=== PATIENT | female | born 1995 | race African-American/Black ===

== ENCOUNTER 2017-11-19 09:28 | Observation (INO) | payer MEDICAID ==
[~2017-11-19] VITALS: Ht 162.6 cm; Wt 72.3 kg
[~2017-11-19 09:28] MED LIST: FERR1TAB25; FLORIDE; PREN-99
[2017-11-19 10:00] VITALS: BP 110/65
[2017-11-19] MEDS ORDERED: ACETAMINOPHEN 500MG TABLET PO ONE (11:00)
[2017-11-19] MEDS ORDERED: ONDANSETRON HCL 4MG/2ML VIAL IV ONE (11:00)
[2017-11-19] MEDS ORDERED: [UNRECOGNIZED DRUG - REMARK] IV ONE ×2 (12:00)
[2017-11-19 12:01] LABS: CLARITY URINE CLEAR (CLEAR); COLOR URINE YELLOW (YELLOW); KETONES URINE NEGATIVE (NEGATIVE); LEUKOCYTE ESTERASE URINE 3+ (NEGATIVE); NITRITE URINE NEGATIVE (NEGATIVE); OCCULT BLOOD URINE NEGATIVE (NEGATIVE); PROTEIN URINE NEGATIVE (NEGATIVE); SPECIFIC GRAVITY URINE 1.014 (1.005-1.030); UROBILINOGEN URINE 0.2 E.U./dL (0.2-1.0)
[2017-11-19] MEDS ORDERED: CEFAZOLIN 2,000 MG in DEXT 5% WATER 100 ML IV ONE (13:00)
== END 2017-11-19 14:50 | disposition home or self-care (01) ==
LOC: L&D 09:47 → ER 09:47 → EDSTATUS 10:36
PROVIDERS: ADMIT Specialist; ATTEND Specialist
DX: O26.892 Other specified pregnancy related conditions, second trimester (principal); R10.30 Lower abdominal pain, unspecified; R51 Headache; M54.9 Dorsalgia, unspecified; R11.0 Nausea; Z3A.27 27 weeks gestation of pregnancy
CPT/HCPCS: 76815; 76818; 81003; 96365; 96366; 96368; 96375; 99281; G0378; J0690; J2405; J3490; J7030; 96360; 96361; J7060

== ENCOUNTER 2018-05-02 10:00 | Emergency (ER) | payer MEDICAID ==
[~2018-05-02] VITALS: Ht 167.6 cm; Wt 65.0 kg
[~2018-05-02 10:00] MED LIST changes: -FERR1TAB25; -FLORIDE
[2018-05-02] MEDS ORDERED: MORPHINE SULFATE 4 MG/ML CPJ (NOT FOR IM USE) IV STA (10:36)
[2018-05-02 10:56] LABS: BASOPHILS % 0.8 % (0.0-2.0); EOSINOPHILS % 2.3 % (0.0-5.0); HEMATOCRIT. 35.7 % (36.0-48.0); HEMOGLOBIN. 11.8 g/dL (12.0-16.0); LYMPHOCYTES % 17.9 % (20.0-50.0); MEAN CORPUSCULAR HEMOGLOBIN 25.1 pg (28.0-32.0); MEAN CORPUSCULAR VOLUME 75.8 fL (81.0-99.0); MEAN PLATELET VOLUME 7.7 fl (7.4-10.4); MONOCYTES % 10.4 % (2.0-8.0); NEUTROPHILS % 68.6 % (40.0-76.0); PLATELET 410 x1000/uL (130-400); RED BLOOD CELL COUNT 4.71 mill/uL (4.2-5.4); RED CELL DISTRIBUTION WIDTH 14.8 % (11.6-14.6)
[2018-05-02 11:02] LABS: CHLORIDE 99 mEq/L (98-107)
[2018-05-02] MEDS ORDERED: IOHEXOL-350 100 ML BOTTLE ONE (12:19)
[2018-05-02] MEDS ORDERED: KETOROLAC 15MG/ML VIAL IV ONE (12:45)
[2018-05-02 15:32] VITALS: BP 132/86
== END 2018-05-02 15:33 | disposition home or self-care (01) ==
LOC: ER 10:13
DX: R06.00 Dyspnea, unspecified (principal); R07.9 Chest pain, unspecified; Z79.899 Other long term (current) drug therapy
CPT/HCPCS: 36415; 71045; 71275; 76705; 80053; 81025; 85025; 85379; 93005; 96374; 96375; 99285; J1885; J2270; J7030; Q9967; Z7610

== ENCOUNTER 2022-01-11 01:20 | Emergency (ER) | payer MEDICAID ==
[~2022-01-11] VITALS: Ht 172.7 cm; Wt 73.0 kg
[2022-01-11] MEDS ORDERED: AZITHROMYCIN 500 MG TABLET PO ONE (02:00)
[2022-01-11] MEDS ORDERED: METRONIDAZOLE 500MG TABLET PO ONE (02:00)
[2022-01-11] MEDS ORDERED: KETOROLAC 60MG/2ML VIAL IM ONE (02:00)
[2022-01-11] MEDS ORDERED: CEFTRIAXONE SODIUM 500 MG/VIAL IM ONE (02:00)
[2022-01-11 02:12] LABS: BASOPHILS % 0.9 % (0.0-2.0); EOSINOPHILS % 1.7 % (0.0-5.0); HEMOGLOBIN. 14.3 g/dL (12.0-16.0); LYMPHOCYTES % 37.1 % (20.0-50.0); MEAN CORPUSCULAR HEMOGLOBIN 27.8 pg (28.0-32.0); MEAN CORPUSCULAR VOLUME 83.8 fL (81.0-99.0); MEAN PLATELET VOLUME 7.4 fl (7.4-10.4); MONOCYTES % 6.7 % (2.0-8.0); NEUTROPHILS % 53.6 % (40.0-76.0); PLATELET 253 x1000/uL (130-400); RED BLOOD CELL COUNT 5.14 mill/uL (4.2-5.4); RED CELL DISTRIBUTION WIDTH 13.1 % (11.6-14.6)
[2022-01-11 02:16] LABS: CLARITY URINE TURBID (CLEAR); COLOR URINE YELLOW (YELLOW); KETONES URINE NEGATIVE (NEGATIVE); LEUKOCYTE ESTERASE URINE NEGATIVE (NEGATIVE); NITRITE URINE POSITIVE (NEGATIVE); OCCULT BLOOD URINE 2+ (NEGATIVE); PH URINE 8.5 (4.5-8.0); PROTEIN URINE NEGATIVE (NEGATIVE); SPECIFIC GRAVITY URINE 1.014 (1.005-1.030)
[2022-01-11 02:19] LABS: CHLORIDE 109 mEq/L (98-107)
[2022-01-11] MEDS ORDERED: DOXY150T5 MT (04:40)
[2022-01-11] MEDS ORDERED: METR500T MT (04:40)
[2022-01-11 04:52] VITALS: BP 110/89
[2022-01-14 06:09] LABS: NEISSERIA GONORRHOEAE NAA Positive (Negative)
== END 2022-01-11 04:54 | disposition home or self-care (01) ==
LOC: ER 01:20
DX: N39.0 Urinary tract infection, site not specified (principal)
CPT/HCPCS: 36415; 80053; 81003; 85025; 86850; 86900; 86901; 87491; 87591; 96372; 99284; J0696; J1885